=== PATIENT | male | born 1945 | race Caucasian/White ===

== ENCOUNTER → 2018-09-22 13:06 | Outpatient (CLI) | payer MEDICARE, SELFPAY ==
--- NOTE | 2018-09-22 13:11 | DI.RAD.S_ITS ---
PROCEDURE: XR SHOULDER RT MIN 2V INDICATIONS: BILATERAL SHOULDER PAIN TECHNIQUE: 3 views of the shoulder were acquired. COMPARISON: [facility], , SHOULDER MINIMUM 2VIEW RIGHT, 04/17/2009, 11:50. FINDINGS: Bones: No fractures or dislocations. No suspicious bony lesions. Medical acromioclavicular and glenohumeral joint degeneration. Visualized ribs appear intact. Soft tissues: No suspicious soft tissue calcifications. IMPRESSION: Mild degenerative joint disease. Dictated by: Marissa Nelson M.D. on 09/22/2018 at 17:10 Approved by: Marissa Nelson M.D. on 09/22/2018 at 17:11
--- NOTE | 2018-09-22 13:11 | DI.RAD.S_ITS ---
PROCEDURE: XR SHOULDER LT MIN 2V INDICATIONS: BILATERAL SHOULDER PAIN TECHNIQUE: 3 views of the shoulder were acquired. COMPARISON: None. FINDINGS: Bones: No fractures or dislocations. No suspicious bony lesions. Mild acromioclavicular and glenohumeral joint degeneration. Visualized ribs appear intact. Soft tissues: No suspicious soft tissue calcifications. IMPRESSION: No fracture or dislocation. Mild degenerative joint disease. Dictated by: Marissa Nelson M.D. on 09/22/2018 at 17:03 Approved by: Marissa Nelson M.D. on 09/22/2018 at 17:10
== END ==
PROVIDERS: Family Provider Family Medicine; PCP Family Medicine; Visit Provider Family Medicine
DX: M25.511 Pain in right shoulder (principal); M25.512 Pain in left shoulder; M19.012 Primary osteoarthritis, left shoulder; M19.011 Primary osteoarthritis, right shoulder
CPT/HCPCS: 73030

== ENCOUNTER 2019-05-03 10:11 | Day surgery (SDC) | payer MEDICARE, SELFPAY ==
--- NOTE | 2019-05-02 19:06 | PM.PREOP ---
Pre-operative Note Interval Note History & Physical reviewed/Exam performed by Physician: Yes Changes to H&P: No
--- NOTE | 2019-05-02 19:07 | PM.OP.1 ---
Operative Date/Time/Diagnoses Date of procedure: 05/03/19 Time of procedure: 11:45 Procedure & Clinicians Procedure: . Preoperative diagnoses: 1. 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 2. 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 3. Status post LASIK 4. Nasal pterygium. 5. Strabismus. Postoperative diagnoses: 1. Complex cataract removed by phacoemulsification with placement of posterior chamber intraocular lens. Procedure: Phacoemulsification with posterior chamber intraocular lens implant . Surgeon: Teresa Cordoba MD Complications: None Specimen: None Implant: ZCBOO+18.5 Blood loss: None Anesthesia: Retrobulbar with monitored standby Description of procedure: Patient presents with a complaint of decreased vision due to cataract which is affecting activities of daily living and driving. The patient wants surgery to improve vision. The iris maybe floppy due to use of prostate like medication. He has also had LASIK which also increases the risk intraoperative complications. 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 To improve surgical safety a Malyugin ring iris pupillary device may be needed. The patient was taken to the operating room and given IV sedation. A retrobulbar block insert consisting of 6 cc of 2% xylocaine without epinephrine mixed half and half with 0.5% Marcaine with 1 cc of hyaluronidase added is placed between the medial and lateral 1/3 of the inferior orbital rim. Lid akinesia is obtain with 1% xylocaine with epinephrine infiltrated along the lid margin. The eye is manually massaged for 30 sec, prepped using Betadine solution, and draped in the usual sterile fashion. His pupil dilated very large and a Maluygin ring was not used. A temporal approach was made, a 1 mm side-port incision was made 90? from the proposed clear corneal incision position. Phenylephrine 1.5% mixed with 1% xylocaine 0.2 cc was placed into the anterior chamber. Viscoat followed by Vidhi was then placed. A 2.6 mm clear incision with a 2.6 mm blade was placed. I noted a probable posterior polar cataract centrally. A 360 degree capsulorrhexis style capsulotomy was then performed with a cystitome needle on a Healon . Hydrodelineation and hydrodissection were performed. The phacoemulsification unit is introduced, and sculpting used to groove the central lens. It is then removed in chopping mode. Epi nucleus is removed with epinuclear mode and irrigation aspiration was used to remove the peripheral cortex with care due to the probable posterior polar plaque. The posterior capsule was not polished centrally. The intraocular lens is selected, inspected, power confirmed, and placed in the posterior chamber. there was no floppy knows to the iris.The wound was stromally hydrated and tested for leaks, there was none and it was left sutureless. Moxifloxacin 0.1 cc was placed into the anterior chamber. Kenalog 0.2 cc was placed in the superior subconjunctival space. A drop of antibiotic and was placed and the eye was patched and shielded. The patient was stable and returned to the recovery room in excellent condition. Dictated by: Teresa Cordoba MD Copy to: [facility]
[2019-05-03] MEDS: PROPARACAINE 0.5% OPHTH SOL 2 DROPS EYE-OP (11:14)
[2019-05-03] MEDS: CATARACT EYE COMPOUND (10 DROPS/SYRINGE) 3 DROPS EYE-OP (11:16)
[2019-05-03 11:21] VITALS: BP 142/72; PULSE 48; RESP 14; TEMP 36.7; O2SAT 99; BMI 24.7
--- NOTE | 2019-05-03 12:39 | SUR.OPER ---
Supine on eye stretcher, head on extension cradle secured with tape. Arms tucked at sides with blanket. Pillow under knees.
[2019-05-03] MEDS: PHENYLEPHRINE/LIDOCAINE VIAL (OR) 0.2 ML EYE-OP (12:42)
[2019-05-03] MEDS: TRIAMCINOLONE 50 MG/5 ML VIAL INJ (12:43)
[2019-05-03] MEDS: LIDOCAINE 2% 4 ML, BUPIVACAINE 0.5% (PF) 4 ML, HYALURONIDASE 150 UNIT INJ (12:43)
[2019-05-03] MEDS: CHONDROIDTIN/SOD HYALURONATE 1.05 ML SYRINGE INTRAOCULA (12:45)
[2019-05-03] MEDS: MOXIFLOXACIN INJ 5 MG/ML VIAL EYE-OP (12:45)
[2019-05-03] MEDS: BALANCED SALT IRRIG SOLN NO.2 500 ML, EPINEPHrine 1 MG IRR (12:46)
[2019-05-03] MEDS: HYALURONATE SODIUM 10 MG/ML SYRINGE INJ (12:46)
[2019-05-03] MEDS: ERYTHROMYCIN OPHTH 1 GM OINT 1 APPLIC EYE-LEFT (12:47)
[2019-05-03 13:02] VITALS: BP 130/79; PULSE 48; RESP 14; TEMP 36.5; O2SAT 98
== END 2019-05-03 13:12 | disposition home or self-care (01) ==
LOC: OR 10:14
PROVIDERS: Family Provider Family Medicine; PCP Family Medicine; Visit Provider Ophthalmology
PROC: (CPT 66982; principal; 2019-05-03 11:45)
DX: H25.812 Combined forms of age-related cataract, left eye (principal); H50.9 Unspecified strabismus; I10 Essential (primary) hypertension
CPT/HCPCS: 66982; J0171; J2704; J3301; J3470

== ENCOUNTER 2019-05-10 10:21 | Day surgery (SDC) | payer MEDICARE, SELFPAY ==
--- NOTE | 2019-05-09 19:37 | PM.PREOP ---
Pre-operative Note Interval Note History & Physical reviewed/Exam performed by Physician: Yes Changes to H&P: No
[2019-05-10] MEDS: CATARACT EYE COMPOUND (10 DROPS/SYRINGE) 3 DROPS EYE-OP (10:40)
[2019-05-10] MEDS: PROPARACAINE 0.5% OPHTH SOL 2 DROPS EYE-OP (10:40)
[2019-05-10 10:43] VITALS: BP 137/74; PULSE 55; RESP 14; TEMP 36.1; O2SAT 96; BMI 24.3
[2019-05-10] MEDS: LIDOCAINE 2% 4 ML, BUPIVACAINE 0.5% (PF) 4 ML, HYALURONIDASE 150 UNIT INJ (13:00)
[2019-05-10] MEDS: TRIAMCINOLONE 50 MG/5 ML VIAL INJ (13:00)
[2019-05-10] MEDS: BALANCED SALT IRRIG SOLN NO.2 500 ML, EPINEPHrine 1 MG IRR (13:01)
[2019-05-10] MEDS: PHENYLEPHRINE/LIDOCAINE VIAL (OR) 0.2 ML EYE-OP (13:02)
[2019-05-10] MEDS: ERYTHROMYCIN OPHTH 1 GM OINT 1 APPLIC EYE-RIGHT (13:02)
[2019-05-10] MEDS: MOXIFLOXACIN INJ 5 MG/ML VIAL EYE-OP (13:02)
[2019-05-10] MEDS: HYALURONATE SODIUM 10 MG/ML SYRINGE INJ (13:03)
[2019-05-10] MEDS: CHONDROIDTIN/SOD HYALURONATE 1.05 ML SYRINGE INTRAOCULA (13:03)
[2019-05-10 13:25] VITALS: BP 125/73; PULSE 57; RESP 14; TEMP 36.8; O2SAT 96
--- NOTE | 2019-05-10 13:39 | SUR.PHASEII ---
Sitting up on the stretcher, enjoying coffee, at bedside. Informed pt to let me know when he wants to go home and hep lock will be dc'd. Surg site CDI, pleasant, denies pain.
--- NOTE | 2019-05-10 13:50 | SUR.PHASEII ---
[id number] Stable and pleasant, expresses appreciation for care. Surg site CDI
--- NOTE | 2019-05-10 14:15 | P.OP_ITS ---
Operative Date/Time/Diagnoses Date of procedure: 05/10/19 Time of procedure: 12:45 Procedure & Clinicians Procedure: Preoperative diagnoses: 1. Right nuclear sclerotic and cortical cataract. 2. Status post LASIK. 3. 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 4. Strabismus requiring prisms. Postoperative diagnoses: 1. Cataract removed by phacoemulsification with placement of posterior chamber intraocular lens. Procedure: Phacoemulsification with posterior chamber intraocular lens implant Surgeon: Teresa Cordoba MD Complications: None Specimen: None Implant: ZCBOO+18.5 Blood loss: None Anesthesia: Retrobulbar with monitored standby Description of procedure: Patient presents with a complaint of decreased vision due to cataract which is affecting activities of daily living. He is a retired Sample [employer] having trouble with both distance and near vision. He is having difficulty with double vision as he requires prisms in his glasses and needs quicker rehabilitation. The patient wants surgery to improve vision. he has had previous refractive surgery as well as takes Flomax which might cause floppy iris syndrome and may have a posterior polar cataract. He is a good dilator. The patient was taken to the operating room and given IV sedation. A retrobulbar block consisting of 6 cc of 2% xylocaine without epinephrine mixed half and half with 0.5% Marcaine with 1 cc of hyaluronidase added is placed between the medial and lateral 1/3 of the inferior orbital rim. The eye is manually massaged for 30 sec, prepped using Betadine solution, and draped in the usual sterile fashion. Temporal approach was made, a 1 mm side-port incision was made 90? from the proposed clear corneal incision position. Phenylephrine 1.5% mixed with 1% xylocaine 0.2 cc was placed into the anterior chamber. Viscoat followed by Healo n was then placed. A 2.6 mm clear incision with a 2.6 mm blade was placed. A 360 degree capsulorrhexis style capsulotomy was then performed with a cystitome needle on a Remind. Hydrodelineation and hydrodissection were performed. The phacoemulsification unit is introduced, and sculpting notice used to groove the central lens. It is then removed in chopping mode. Epi nucleus is removed with epinuclear mode and irrigation aspiration was used to remove the peripheral cortex. The posterior capsule is polished. The intraocular lens is selected, inspected, power confirmed, and placed in the posterior chamber. The wound was stromally hydrated and tested for leaks, there was none and it was left sutureless. Vigamox 0.1 cc was placed into the anterior chamber. Kenalog 0.2 cc was placed in the superior subconjunctival space. A drop of antibiotic and was placed and the eye was patched and shielded. The patient was stable and returned to the recovery room in excellent condition. Dictated by: Teresa Cordoba MD Copy to: [facility]
== END 2019-05-10 13:48 | disposition home or self-care (01) ==
LOC: OR 10:22
PROVIDERS: Family Provider Family Medicine; PCP Family Medicine; Visit Provider Ophthalmology
PROC: (CPT 66984; principal; 2019-05-10 11:45)
DX: H25.811 Combined forms of age-related cataract, right eye (principal); H50.9 Unspecified strabismus; I10 Essential (primary) hypertension
CPT/HCPCS: 66984; J0171; J2250; J2704; J3010; J3301; J3470

== ENCOUNTER → 2020-12-31 11:35 | Outpatient (CLI) | payer MEDICARE, SELFPAY | PROVIDERS: Family Provider Family Medicine; PCP Family Medicine; Referring Provider Family Medicine; Visit Provider Family Medicine | DX: M85.852 Other specified disorders of bone density and structure, left thigh (principal); M41.20 Other idiopathic scoliosis, site unspecified; Z85.46 Personal history of malignant neoplasm of prostate; Z87.891 Personal history of nicotine dependence | CPT/HCPCS: 77080 ==

== ENCOUNTER → 2023-05-03 12:05 | Outpatient (CLI) | payer MEDICARE, SELFPAY ==
--- NOTE | 2023-05-03 | DI.RAD.S_ITS ---
Bone Density Report Name: TAWANNA JAFFE Age: 77 Sex: Male Ethnicity: White Date of : 1945 Indication: screening for osteoporosis; Referring Provider: GURJIT BOATENG Study: Bone densitometry was performed. Exam Date: May 03, 2023 Accession number: [id number] Bone Density: Region BMD T-score Z-score Classification AP Spine(L1-L4) 1.142 0.9 1.5 Normal Femoral Neck (Left) 0.775 -0.7 0.2 Normal Total Hip (Left) 0.988 0.4 0.6 Normal Femoral Neck (Right) 0.747 -0.9 0.0 Normal Total Hip (Right) 0.875 -0.5 -0.2 Normal Total Hip Mean 0.932 -0.1 0.2 Normal World Health Organization criteria for BMD impression classify patients as: Normal (T-score at or above -1.0), Osteopenia (T-score between -1.0 and -2.5), or Osteoporosis (T-score at or below -2.5). 10-year Fracture Risk: FRAX not reported because: All T-scores for Spine Total, Hip Total, Femoral Neck at or above -1.0 Previous Exams: -- Region Exam Age BMD T-score BMD Change BMD Change Date g/cm2 vs Baseline vs Previous -- AP Spine (L1-L4) 05/03/2023 77 1.142 0.9 -0.100 (-8.0%)# -0.100 (-8.0%)# 12/31/2020 75 1.242 1.8 Total Hip(Left) 05/03/2023 77 0.988 0.4 0.016 (1.6%)# 0.016 (1.6%)# 12/31/2020 75 0.972 0.2 Total Hip(Right) 05/03/2023 77 0.875 -0.5 -0.032 (-3.5%)# -0.032 (-3.5%)# 12/31/2020 75 0.907 -0.3 -- *Denotes significance at 95% confidence level, LSC for AP Spine = 0.022 g/cm2, LSC for Total Hip = 0.027 g/cm2 # Denotes dissimilar scan types or analysis methods Impression: The patient has normal bone mass. No significant bone loss was observed. Discussion: BONE DENSITY IS ABOVE THE MINIMUM DESIRABLE LEVEL AT ALL SKELETAL SITES TESTED. This patient's bone mineral density is above the minimum desirable level (T-score -1.0 or better) at all sites measured. The patient should follow a healthful lifestyle (good nutrition with adequate calcium and vitamin D, and appropriate weight-bearing exercise). Follow-Up: Consider repeating this study in 5 years or sooner if there is some new clinical indication. Reported by: LOTTIE DUMONT M.D. on 05/03/2023 12:50:00 PM.
--- NOTE | 2023-05-03 12:08 | DI.RAD.S_ITS ---
PROCEDURE: XR THORACIC SPINE 3V INDICATIONS: scoliosis, back pain TECHNIQUE: 3 views of the thoracic spine were acquired. COMPARISON: [facility], CR, XR LUMBAR SPINE 2-3V, 05/03/2023, 12:19. FINDINGS: Bones: There is 43 degree dextroscoliosis in thoracolumbar spine with the apex at T11. No fractures or dislocations. No suspicious bony lesions. Mild degenerative disease scattered in thoracic spine. 12 pairs of ribs are noted, and appear intact where visualized. Soft tissues: No paravertebral stripe thickening. IMPRESSION: 1. 43 degree dextroscoliosis. 2. Mild degenerative disc disease. Dictated by: Marissa Nelson M.D. on 05/03/2023 at 17:10 Approved by: Marissa Nelson M.D. on 05/03/2023 at 17:13
--- NOTE | 2023-05-03 12:08 | DI.RAD.S_ITS ---
PROCEDURE: XR LUMBAR SPINE 2-3V INDICATIONS: scoliosis, back pain TECHNIQUE: 3 views of the lumbar spine were acquired. COMPARISON: [facility], CR, XR THORACIC SPINE 3V, 05/03/2023, 12:19. FINDINGS: Bones: 5 hrs-kwu-kqzzwho vertebrae are present. S shaped scoliosis in thoracolumbar spine with the primary dextrocurvature in thoracic spine and a 18.2 degree secondary levoscoliosis in lumbar spine with the apex at L4. normal bony alignment. No vertebral body compression fractures. No suspicious bony lesions. Moderate degenerative disease at L2-L3 and L3-L4. Moderate facet arthropathy at L4-L5 and L5-S1. Soft tissues: Overlying bowel gas pattern is normal. No suspicious soft tissue calcifications. IMPRESSION: 1. Scoliosis. 2. Moderate degenerative disc and facet disease. Dictated by: Marissa Nelson M.D. on 05/03/2023 at 16:56 Approved by: Marissa Nelson M.D. on 05/03/2023 at 17:01
== END ==
PROVIDERS: Family Provider Family Medicine; PCP Family Medicine; Referring Provider Family Medicine; Visit Provider Family Medicine
DX: M47.817 Spondylosis without myelopathy or radiculopathy, lumbosacral region (principal); M47.816 Spondylosis without myelopathy or radiculopathy, lumbar region; M51.36 Other intervertebral disc degeneration, lumbar region; M54.50 Low back pain, unspecified; M25.551 Pain in right hip; M81.8 Other osteoporosis without current pathological fracture; M41.25 Other idiopathic scoliosis, thoracolumbar region
CPT/HCPCS: 72072; 72100; 77080

== ENCOUNTER → 2023-05-08 15:09 | Outpatient (CLI) | payer MEDICARE, SELFPAY ==
--- NOTE | 2023-05-08 | DI.MRI.S_ITS ---
PROCEDURE: MR THORACIC SPINE WO CON INDICATIONS: DUE TO PAIN TECHNIQUE: Noncontrast sagittal T1 spine echo and T2 fast spin echo, sagittal STIR, and T2 fast spin echo through the thoracic spine. COMPARISON: [facility], CR, XR THORACIC SPINE 3V, 05/03/2023, 12:19. FINDINGS: Image quality: Excellent. Alignment and Curvature: There is dextroscoliosis of the mid thoracic spine. Bone Marrow: Marrow is of normal overall signal. No acute vertebral body compression fractures. Spinal Cord: Visualized spinal cord is normal in size and signal. Paraspinous Soft Tissues: No paravertebral masses. Miscellaneous: On axial images, central canal and foramina appear widely patent at all scanned levels. Minimal multilevel facet arthropathy. IMPRESSION: Thoracic spine without acute abnormalities. No evidence for significant spinal canal or neural foraminal stenosis. Mild multilevel thoracic spondylosis. Redemonstration of dextroscoliosis of the thoracic spine. Dictated by: Evaristo Tee M.D. on 05/10/2023 at 8:53 Approved by: Evaristo Tee M.D. on 05/10/2023 at 8:56
--- NOTE | 2023-05-08 | DI.MRI.S_ITS ---
PROCEDURE: MR LUMBAR SPINE WO CON INDICATIONS: DUE TO PAIN TECHNIQUE: Noncontrast sagittal T1 spin echo and T2 fast echo, sagittal STIR, and T2 fast spin echo through the lumbar spine. In cases with scoliosis, additional coronal T2 fast spin echo may be performed. COMPARISON: None. FINDINGS: Image quality: Excellent. Alignment and Curvature: There is 19? left convex scoliosis centered at L3. Bone Marrow: Marrow is of normal overall signal. No acute vertebral body compression fractures. Spinal Cord: Conus medullaris terminates at the L1 level. Visualized cord demonstrates normal signal and size. Paraspinous Soft Tissues: No paravertebral masses. T12-L1: Normal appearance. L1-L2: Mild bilateral foraminal narrowing. No canal stenosis. L2-L3: Mild facet ligamentum flavum hypertrophy. Mild left foraminal stenosis. No right neural foraminal narrowing. L3-L4: Moderate facet ligamentum flavum hypertrophy. No canal stenosis. Moderate right foraminal narrowing. No left neural foraminal stenosis. L4-L5: Mild disc desiccation. Broad-based disc bulge. Severe facet ligamentum flavum hypertrophy. Mild canal stenosis. Mild bilateral foraminal stenosis. L5-S1: Mild disc desiccation and height loss. Moderate facet ligamentum flavum hypertrophy. No canal stenosis. No foraminal stenosis. There is a small posterior focal high-intensity zone. IMPRESSION: 1. 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 2. No significant canal stenosis or foraminal narrowing of the lumbar spine. 3. Levoscoliosis. Dictated by: Jeanne Santo M.D. on 05/10/2023 at 9:42 Approved by: Jeanne Santo M.D. on 05/10/2023 at 9:55
== END ==
PROVIDERS: Family Provider Family Medicine; PCP Family Medicine; Referring Provider Family Medicine; Visit Provider Family Medicine
DX: M41.25 Other idiopathic scoliosis, thoracolumbar region (principal); M51.9 Unspecified thoracic, thoracolumbar and lumbosacral intervertebral disc disorder; M47.814 Spondylosis without myelopathy or radiculopathy, thoracic region
CPT/HCPCS: 72146; 72148

== ENCOUNTER → 2024-04-24 07:38 | Outpatient (CLI) | payer MEDICARE, SELFPAY ==
--- NOTE | 2024-04-24 07:41 | DI.RAD.S_ITS ---
PROCEDURE: XR T AND L SPINE 4 TO 5 VIEWS INDICATIONS: scoliosis TECHNIQUE: Frontal and lateral standing views of the spine acquired. COMPARISON: [facility], CR, XR THORACIC SPINE 3V, 05/03/2023, 12:19. FINDINGS: Major curve: Thoracic convex to the right . [place] vertebra or disc level: T4 . End vertebrae: T12 . Arce angle: 41 ?. Arce angles greater than 10 degrees qualify as scoliosis; those less than 10 degrees are deemed spinal asymmetry and generally do not progress. On follow-up, Arce angle changes of 5 degrees or more qualify as significant. Major curve: Lumbar convex to the left. [place] vertebra or disc level: L2 . End vertebrae: L5. Arce angle: 27 ?. Arce angles greater than 10 degrees qualify as scoliosis; those less than 10 degrees are deemed spinal asymmetry and generally do not progress. On follow-up, Arce angle changes of 5 degrees or more qualify as significant. Other measurements: Coronal balance: Neutral. Abnormal if greater than +/- 2 cm on the frontal view. Sagittal balance: Positive 1.3 cm. Abnormal if greater than +/- 2 cm on the lateral view. Bone morphology: No developmental anomalies of the ribs or spine. Wall pairs of ribs are noted. 5 nonrib-bearing lumbar vertebrae are present. No suspicious bony lesions. IMPRESSION: Thoracic dextroscoliosis. Lumbar levoscoliosis Dictated by: Harvinder Encarnacion M.D. on 04/24/2024 at 23:16 Approved by: Harvinder Encarnacion M.D. on 04/24/2024 at 23:22
== END ==
LOC: RAD 07:40
PROVIDERS: Family Provider Family Medicine; PCP Family Medicine; Referring Provider Physical Medicine & Rehabilitation; Visit Provider Physical Medicine & Rehabilitation
DX: M41.9 Scoliosis, unspecified (principal); M47.816 Spondylosis without myelopathy or radiculopathy, lumbar region
CPT/HCPCS: 72083

== ENCOUNTER 2024-06-13 13:29 | Outpatient (CLI) | payer MEDICARE, SELFPAY ==
[2024-06-13] VITALS (8 sets, daily range): BP systolic 119–156; BP diastolic 66–73; PULSE 59–65; RESP 12–21; TEMP 36.7; O2SAT 97–100
--- NOTE | 2024-06-13 13:31 | DI.RAD.S_ITS ---
PROCEDURE: PAIN L/S TRANSFORAMINAL INJECT INDICATIONS: Right L4-5 transforaminal ISH COMPARISON: None. FINDINGS/IMPRESSION: Fluoroscopic spot filming was performed to verify placement of spinal needles at the L4-5 level(s), as labeled on the films. Appropriate location(s) of the needle tip(s) was confirmed by injection of iodinated contrast. Dictated by: Jes Rodriguez M.D. on 06/13/2024 at 16:06 Approved by: Jes Rodriguez M.D. on 06/13/2024 at 16:06
[2024-06-13] MEDS: MIDAZOLAM 2 MG/2 ML VIAL IV (14:37)
[2024-06-13] MEDS: BUPIVACAINE 0.25% (PF) VIAL 2 ML INJ (14:43)
[2024-06-13] MEDS: DEXAMETHASONE 10 MG/ML VIAL INJ (14:43)
[2024-06-13] MEDS: iopamidoL 15 ML VIAL 3 ML INJ (14:44)
[2024-06-13] MEDS: BETAMETHASONE 30 MG/5 ML MDV 12 MG INJ (14:44)
--- NOTE | 2024-06-13 14:56 | P.PCN_ITS ---
Date/Time/Diagnoses Date of procedure: 06/13/24 Time of procedure: 14:56 Pre-procedure diagnosis: 1. FORAMINAL STENOSIS WITH LE SYMPTOMS Post-procedure diagnosis: same Procedure Notes Procedure: 1. FLUOROSCOPICALLY GUIDED CONTRAST CONTROLLED TRANSFORAMINAL EPIDURAL STEROID INJECTION - RIGHT L4/5 TFESI Indications: Chente is referred by Dr. Mars for treatment of Foraminal Stenosis with Right LE Symptoms Physician: Cong Dimas Total Fluoroscopy time (seconds): 10 Total sedation minutes: 11 Complications: none Procedure in detail & Post-procedure care: FINDINGS Foraminal Nerve Root Compression secondary to disc disease and facet hypertrophy DESCRIPTION OF PROCEDURE Following review of allergy and review of potential side effects and complications, including, but not necessarily limited to, infection, allergic reaction, local tissue breakdown, stroke, temporary or permanent nerve injury, paralysis, and possible , the patient indicated that the patient understood and agreed to proceed. An informed consent document was signed by the patient, witnessed by a nurse, and placed in the patient's chart. Additionally, other treatment options including medications, modalities, and physical therapy were reviewed with the patient. After review of previous anaesthesic history and IV conscious sedation the patient was deemed safe to proceed with today?s procedure with IV conscious sedation as ASA class II designation. Safety time-out was performed to confirm patient ID, procedure to be performed and site of procedure. IV sedation was accomplished with a combination of 2mg of Versed was administered by the RN after DO order, titrated to patient comfort during the course of the procedure while the patient remained responsive to all verbal commands In the prone position following sterile prep and drape of the lumbar region, the right L4/5 posterior neuroforamen was identified fluoroscopically. The skin was anesthetized via a 25-gauge 1.5-inch needle with 1% lidocaine solution. At this point, a 25-gauge 3.5-inch spinal needle was atraumatically introduced and advanced under fluoroscopic guidance through the posterior right L4/5 neuroforamen to approximately the anterior aspect of the canal. Depth was confirmed on lateral view. Following negative aspiration, injection of approximately 1.5cc of Isovue 200 under live fluoroscopy in the AP view c onfirmed excellent flow along the nerve root, into the epidural space without vascular or intrathecal uptake observed Radiological data, including multiple fluoroscopic views of the lumbosacral spi ne, reveal a spinal needle at the right L4/5 posterior neuroforamen. Subsequent views show flow of contrast material flowing superiorly and inferiorly along the nerve root confirming epidural flow. Subsequently, a test dose of 1.5 cc of 1% lidocaine solution was administered and patient was observed for two minutes for signs or symptoms of complications, including abdominal pain, shortness of breath, bilateral upper or lower extremity weakness, nausea and vomiting, prior to steroid injection. At this point, a total of 3cc or 10mg of dexamethasone and 12mg of betamethasone was injected without incident. The procedure tolerated the procedure well without signs or symptoms of complications prior to transfer to the recovery area continued monitoring without incident. The patient was then transferred to the recovery area where they were observed for an appropriate time after the injection. The patient reported a VAS score of 7 prior to the procedure and a post- procedure VAS of 0. POST OP INSTRUCTIONS The patient was provided a Pain Log to continue to record their response to the target-specific procedure prior to follow-up visit with their referring physician. Additionally, specific post-injection care instructions and a contact number to our office were provided if concerns arise regarding possible complications associated with the procedure are suspected.
== END 2024-06-13 15:17 | disposition home or self-care (01) ==
PROVIDERS: Family Provider Family Medicine; PCP Family Medicine; Referring Provider Physical Medicine & Rehabilitation; Visit Provider Physical Medicine & Rehabilitation
DX: M48.061 Spinal stenosis, lumbar region without neurogenic claudication (principal); M51.16 Intervertebral disc disorders with radiculopathy, lumbar region; M47.26 Other spondylosis with radiculopathy, lumbar region
CPT/HCPCS: 64483; 99152; J0702; J1100; J2250; J3490

== ENCOUNTER 2024-09-28 08:06 | Outpatient (CLI) | payer MEDICARE, SELFPAY ==
[2024-09-28] VITALS (8 sets, daily range): BP systolic 98–134; BP diastolic 53–67; PULSE 54–68; RESP 14–18; TEMP 36.4; O2SAT 98–100
[2024-09-28] MEDS: MIDAZOLAM 2 MG/2 ML VIAL 1 MG IV ×2 (09:04→09:09)
[2024-09-28] MEDS: BUPIVACAINE 0.5% (PF) 10 ML VIAL 2 ML INJ (09:09)
[2024-09-28] MEDS: iopamidoL 15 ML VIAL 3 ML INJ (09:10)
--- NOTE | 2024-09-28 09:19 | PM.PROC.IR.1 ---
Date/Time/Diagnoses Date of procedure: 09/28/24 Time of procedure: 09:19 Pre-procedure diagnosis: 1. FACET ARTHROPATHY Post-procedure diagnosis: same Procedure Notes Procedure: 1. Right L4, L5 and S1 MB BLOCKS LA Indications: Chente is referred by Dr. Mars for treatment of Right Axial LBP. Physician: Cong Dimas Total Fluoroscopy time (seconds): 5 Total sedation minutes: 10 Complications: none Procedure in detail & Post-procedure care: DESCRIPTION OF PROCEDURE Fluoroscopically guided, contrast-controlled right L4, L5 and S1 medial branch blocks with 0.5cc of 0.5% Marcaine. Following review of allergy and review of potential side effects and complications, including, but not necessarily limited to, infection, allergic reaction, local tissue breakdown, nerve injury, paralysis, stroke and possible , the patient indicated that the patient understood and agreed to proceed. An informed consent document was signed by the patient, witnessed by a nurse, and placed in the patient's chart. After review of previous anaesthesic history and IV conscious sedation the patient was deemed safe to proceed with today?s procedure with IV conscious sedation as ASA class II designation. Safety time-out was performed to confirm patient ID, procedure to be performed and site of procedure. IV sedation was accomplished with a combination of 2mg of Versed was administered by the RN after DO order, titrated to patient comfort during the course of the procedure while the patient remained responsive to all verbal commands In the prone position, following sterile prep and drape of the lumbar region, the right L4, L5 and S1 anatomical location of the medial branch of the dorsal ramus was identified fluoroscopically. Subsequently an anesthetic skin wheal using 1% lidocaine solution was initiated at each of the anatomical spots. Subsequently then a 22-gauge 3.5-inch spinal needle was atraumatically introduced and advanced under fluoroscopic guidance at each of the corresponding sites at the right L4, L5 and S1 MB. After negative aspiration, 0.2 cc of Isovue 200 was injected, confirming placement without vascular or intrathecal uptake. Subsequently then 0.5 cc of 0.5% Marcaine solution was injected at each of the corresponding sites at the right L4, L5 and S1 medial branch locations. The patient tolerated the procedure well without signs or symptoms of complications. The procedure tolerated the procedure well without signs or symptoms of complications prior to transfer to the recovery area continued monitoring without incident. Post-procedure, the patient was monitored initiating provocative activities to measure the amount of relief from block of the facetogenic pain. The patient reported a VAS of 7 prior to the procedure and a post-procedure VAS of 1. It has been a pleasure to assist in the diagnostic and therapeutic care of your patient. POST OP INSTRUCTIONS The patient was provided with a Pain Log to complete over the next several hours and subsequent days prior to the patient's follow up with the ordering physician. If the patient has cotton classer aide relief to the solution applied, then they may be a candidate for medial branch rhizotomy. The patient is aware, was provided, once again, with a Pain Log and will follow up with the referring physician for review and clinical correlation.
== END 2024-09-28 09:40 | disposition home or self-care (01) ==
PROVIDERS: Family Provider Family Medicine; PCP Family Medicine; Referring Provider Physical Medicine & Rehabilitation; Visit Provider Physical Medicine & Rehabilitation
DX: M47.816 Spondylosis without myelopathy or radiculopathy, lumbar region (principal); M47.817 Spondylosis without myelopathy or radiculopathy, lumbosacral region
CPT/HCPCS: 64493; 64494; 99152; J2250

== ENCOUNTER → 2024-11-22 06:53 | Outpatient (CLI) | payer MEDICARE, SELFPAY ==
--- NOTE | 2024-11-22 06:54 | DI.ECHO.S_ITS ---
[facility]---------+ [facility] : : [address] : : [place] : : [id number] : : Phone: [phone] Echocardiogram Report + + :Name: TAWANNA JAFFE Study Date: 11/22/2024 Height: 69 in : :Hospital ReadingLocation: Weight: 165 lb : : Gender: Male BSA: 1.9 m2 : :: 1945 Age: 79 yrs BP: 122/61 mmHg: :Reason For Study: ARRHYTHMIA : :Ordering Physician: TASNEEM, : :GURJIT Performed By: Unruly Pisano : :Referring: GURJIT BOATENG : + + Interpretation Summary 1. The left ventricular contractility is normal. Estimate ejection fraction is greater than 55% with no segmental wall motion abnormalities. No LVH. No diastolic dysfunction. 2 the right ventricular contractility is normal. 3. Mild right ventricular enlargement. All other cardiac chambers are of normal size. 4. Trace to mild tricuspid regurgitation with estimated pulmonary systolic artery pressures of 30 mmHg. 5. No obvious intracardiac shunts. 6. No obvious intracardiac masses nor thrombi. 7. No hemodynamically significant pericardial effusion. 8. Low right-sided filling pressures. 9. Mildly dilated ascending thoracic aorta as well as aortic root without obvious dissection. Conclusion: Normal biventricular function with no significant valvular abnormalities. Procedure: A two-dimensional transthoracic echocardiogram with color flow and Doppler was performed. The study quality was technically good. There is no prior echocardiogram noted for this patient. The patient had occasional PACs during the exam. Left Ventricle: The left ventricle is normal in size. There is normal left ventricular wall thickness. There is no ventricular septal defect visualized. The ejection fraction is estimated to be 60-65%. There are no focal wall motion abnormalities. Diastolic parameters suggest probable normal left ventricular diastolic function and normal filling pressures. Right Ventricle: The right ventricle is normal in size and function. Atria: The left atrial size is normal. The right atrium is mildly dilated. There is no Doppler evidence for an interatrial shunt. Mitral Valve: The mitral valve leaflets appear mildly thickened, but open well. The mitral valve chordae are thickened and/or calcified. There is no mitral regurgitation noted. Aortic Valve: The aortic valve is trileaflet. The aortic valve opens well. No aortic regurgitation is present. Tricuspid Valve: The tricuspid valve leaflets are thin and pliable. There is mild tricuspid regurgitation. The right ventricular systolic pressure is estimated to be at least 30 mmHg based on an estimated right atrial pressure of 3 mm Hg. Pulmonic Valve: The pulmonic valve is not well seen, but is grossly normal. There is no pulmonic valvular regurgitation. Great Vessels: The aortic root is mildly dilated. The ascending aorta is mildly enlarged. The pulmonary artery is normal size. The IVC is of normal diameter and collapses greater than 50% with a sniff. This suggests a low right atrial pressure of 3 mm Hg. Pericardium/ Pleura There is no pericardial effusion. There is no pleural effusion. MMode/2D Measurements & Calculations LVIDd: 5.7 cm LVOT diam: 2.1 cm LVIDs: 4.1 cm Ao root diam: 3.9 cm FS: 28.9 % asc Aorta Diam: 4.0 cm EPSS: 0.35 cm IVSd: 0.84 cm LVPWd: 0.80 cm LV beaulieu. diameter/BSA (cm/m^2): 3.0 LV sys. diameter/BSA (cm/m^2): 2.1 LA A2 area: 16.7 cm2 RA long axis: 5.7 cm LA A4 area: 21.7 cm2 RA area: 19.3 cm2 LA length (vol): 5.6 cm RA vol: 55.8 ml LA vol: 55.4 ml RA : 29.3 ml/m2 LA vol index: 29.1 ml/m2 IVC diam: 1.4 cm TAPSE: 3.5 cm Doppler Measurements & Calculations Ao V2 max: 141.9 cm/sec LVOT Max Trung: 131.5 cm/sec Ao V2 mean: 96.5 cm/sec LV V1 max P.9 mmHg Ao max P.1 mmHg LV V1 VTI: 29.8 cm Ao mean P.2 mmHg VIANCA(I,D): 2.9 cm2 Ao V2 VTI: 34.1 cm VIANCA(V,D): 3.1 cm2 sev ratio: 0.87 VIANCA indexed to BSA (cm^2/m^2): 1.5 MV E max trung: 69.5 cm/sec TR max trung: 262.2 cm/sec MV A max trung: 74.2 cm/sec TR max P.5 mmHg MV E/A: 0.94 PA V2 max: 120.6 cm/sec Med Peak E' Trung: 8.5 cm/sec PA V2 mean: 84.5 cm/sec E/E' med: 8.2 PA mean P.2 mmHg Lat Peak E' Trung: 10.6 cm/sec PA pr(Accel): 55.0 mmHg E/E' lat: 6.5 E/e' average: 7.4 MV dec time: 0.22 sec SV([facility]): 100.1 ml Reading Physician:KENNEDY
== END ==
PROVIDERS: Family Provider Family Medicine; PCP Family Medicine; Referring Provider Family Medicine; Visit Provider Family Medicine
DX: I07.1 Rheumatic tricuspid insufficiency (principal); I77.89 Other specified disorders of arteries and arterioles; I77.810 Thoracic aortic ectasia; I49.9 Cardiac arrhythmia, unspecified; I10 Essential (primary) hypertension
CPT/HCPCS: 93306

== ENCOUNTER 2024-12-12 07:14 | Outpatient (CLI) | payer MEDICARE, SELFPAY ==
[2024-12-12] VITALS (8 sets, daily range): BP systolic 110–140; BP diastolic 54–64; PULSE 53–61; RESP 11–20; TEMP 36.2; O2SAT 97–100
[2024-12-12] MEDS: MIDAZOLAM 2 MG/2 ML VIAL IV (08:33)
[2024-12-12] MEDS: iopamidoL 15 ML VIAL 3 ML INJ (08:40)
[2024-12-12] MEDS: LIDOCAINE 2% INJ SDV 5ML 1 ML INJ (08:42)
--- NOTE | 2024-12-12 08:52 | P.PCN_ITS ---
Date/Time/Diagnoses Date of procedure: 12/12/24 Time of procedure: 08:52 Pre-procedure diagnosis: Lumbar Facet Arthropathy Post-procedure diagnosis: same Procedure Notes Procedure: 1. Right L4, L5 and S1 MB BLOCKS SA Indications: Chente is referred by Dr. Mars for treatment of Right Axial LBP. Physician: Cong Dimas Total Fluoroscopy time (seconds): 4 Total sedation minutes: 11 Complications: none Procedure in detail & Post-procedure care: DESCRIPTION OF PROCEDURE Fluoroscopically guided, contrast-controlled right L4, L5 and S1 medial branch blocks with 0.5cc of 2% Lidocaine. Following review of allergy and review of potential side effects and complications, including, but not necessarily limited to, infection, allergic reaction, local tissue breakdown, nerve injury, paralysis, stroke and possible , the patient indicated that the patient understood and agreed to proceed. An informed consent document was signed by the patient, witnessed by a nurse, and placed in the patient's chart. After review of previous anaesthesic history and IV conscious sedation the patient was deemed safe to proceed with today?s procedure with IV conscious sedation as ASA class II designation. Safety time-out was performed to confirm patient ID, procedure to be performed and site of procedure. IV sedation was accomplished with a combination of 2mg of Versed was administered by the RN after DO order, titrated to patient comfort during the course of the procedure while the patient remained responsive to all verbal commands In the prone position, following sterile prep and drape of the lumbar region, the right L4, L5 and S1 anatomical location of the medial branch of the dorsal ramus was identified fluoroscopically. Subsequently an anesthetic skin wheal using 1% lidocaine solution was initiated at each of the anatomical spots. Subsequently then a 22-gauge 3.5-inch spinal needle was atraumatically introduced and advanced under fluoroscopic guidance at each of the corresponding sites at the right L4, L5 and S1 MB. After negative aspiration, 0.2 cc of Isovue 200 was injected, confirming placement without vascular or intrathecal uptake. Subsequently then 0.5 cc of 2% Lidocaine solution was injected at each of the corresponding sites at the right L4, L5 and S1 medial branch locations. The patient tolerated the procedure well without signs or symptoms of complications. The procedure tolerated the procedure well without signs or symptoms of complications prior to transfer to the recovery area continued monitoring without incident. Post-procedure, the patient was monitored initiating provocative activities to measure the amount of relief from block of the facetogenic pain. The patient reported a VAS of 7 prior to the procedure and a post-procedure VAS of 1. It has been a pleasure to assist in the diagnostic and therapeutic care of your patient. POST OP INSTRUCTIONS The patient was provided with a Pain Log to complete over the next several hours and subsequent days prior to the patient's follow up with the ordering physician. If the patient has custom leather products maker relief to the solution applied, then they may be a candidate for medial branch rhizotomy. The patient is aware, was provided, once again, with a Pain Log and will follow up with the referring physician for review and clinical correlation.
== END 2024-12-12 09:05 | disposition home or self-care (01) ==
PROVIDERS: Family Provider Family Medicine; PCP Family Medicine; Referring Provider Physical Medicine & Rehabilitation; Visit Provider Physical Medicine & Rehabilitation
DX: M47.816 Spondylosis without myelopathy or radiculopathy, lumbar region (principal)
CPT/HCPCS: 64493; 64494; 99152; J2250

== ENCOUNTER 2025-01-02 07:11 | Outpatient (CLI) | payer MEDICARE, SELFPAY ==
[2025-01-02] VITALS (10 sets, daily range): BP systolic 100–116; BP diastolic 51–73; PULSE 48–57; RESP 14–16; TEMP 36.5; O2SAT 98–100
[2025-01-02] MEDS: MIDAZOLAM 2 MG/2 ML VIAL IV (08:20)
[2025-01-02] MEDS: MIDAZOLAM 2 MG/2 ML VIAL 1 MG IV (08:28)
[2025-01-02] MEDS: LIDOCAINE 1% 20 ML 5 ML INJ (08:30)
[2025-01-02] MEDS: BUPIVACAINE 0.5% (PF) 10 ML VIAL 5 ML INJ (08:30)
--- NOTE | 2025-01-02 08:50 | P.PCN_ITS ---
Date/Time/Diagnoses Date of procedure: 01/02/25 Time of procedure: 08:51 Pre-procedure diagnosis: 1. RECALCITRANT FACET ARTHROPATHY Post-procedure diagnosis: same Procedure Notes Procedure: 1. RIGHT L4 AND L5 MEDIAL BRANCH RADIOFREQUENCY NEUROTOMY AND RIGHT S1 DORSAL RAMUS BRANCH RADIOFREQUENCY NEUROTOMY Indications: Chente is referred by Dr. Mars for treatment of facet arthropathy. Physician: Cong Dimas Total Fluoroscopy time (seconds): 10 Total sedation minutes: 22 Complications: none Procedure in detail & Post-procedure care: DESCRIPTION OF PROCEDURE Right L4 and L5 medial branch radiofrequency neurotomy and right S1 dorsal ramus branch radiofrequency neurotomy under fluoroscopy with conscious sedation. The patient is well known to this clinic having undergone previous facet injections with good but temporary relief. The patient has experienced appropriate, concordant relief with previous facet and median branch blocks but the patient's pain has been recalcitrant to further conservative measures. Therefore, based upon the patient's relief and persistent symptoms, the patient is considered an appropriate candidate for facet rhizotomy. All of the patient's questions regarding the risks versus benefits of the procedure, including, but not limited to, bleeding, infection, temporary as well as lasting nerve injury, paralysis, stroke, and , as well treatment alternatives were answered to satisfaction. After review of previous anaesthesic history and IV conscious sedation the patient was deemed safe to proceed with today?s procedure with IV conscious sedation as ASA class II designation. Safety time-out was performed to confirm patient ID, procedure to be performed and site of procedure. IV sedation was accomplished with a combination of 3mg of Versed was administered by the RN after DO order, titrated to patient comfort during the course of the procedure while the patient remained responsive to all verbal commands. After obtaining informed consent, denial of pertinent drug allergies, as well as being made aware of the potential risks of bleeding, infection, spinal cord trauma, paralysis, temporary and permanent nerve damage, seizure, stroke, and possible , the patient was brought to the fluoroscopy suite and positioned prone on the fluoroscopy table. The lumbar region was prepped with Betadine and covered with a fenestrated drape in the usual sterile fashion. Appropriate monitors applied including pulse oximeter, pulse, and blood pressure for regular monitoring throughout the procedure. After local infiltration using 1% lidocaine, under fluoroscopic guidance, a 10- cm RF insulated needle with a 10-mm active tip was positioned parallel to the junction of the right sacral ala and the superior articulating process where the S1 dorsal ramus resides. Needle placement was confirmed with sensory stimulation at 50 Hz, with motor stimulation of .5v on the right which produced local stimulation without radicular component. The stimulation was then increased to 2v with, once again, only local multifidus stimulation without radicular component. This was then followed by two discreet lesions performed at 80 degrees Celsius for 90 seconds each. The needle was then removed and the identical procedure was performed along the length of the right L5 medial branch with motor stimulation at .7v on the right. The identical procedure was once again performed along the length of the right L4 medial branch with motor stimulation of .5v on the right. The patient tolerated the procedure well without signs or symptoms of complications prior to transfer to the recovery area continued monitoring without incident. The patient was then transferred to the recovery area where they were observed for an appropriate period of time after the injection. The patient was then transferred to the recovery area where they were observed for an appropriate period of time after the injection. The patient reported a VAS score of 8 prior to the procedure and a post- procedure VAS of 0. POST OP INSTRUCTIONS The patient was provided a Pain Log to continue to record the patient's response to the target-specific procedure prior to the patient's follow-up visit with the referring physician. Additionally, specific post-injection care instructions and a contact number to our office were provided if concerns arise regarding possible complications associated with the procedure are suspected.
== END 2025-01-02 09:05 | disposition home or self-care (01) ==
LOC: RAD 07:12
PROVIDERS: PCP Family Medicine; Referring Provider Physical Medicine & Rehabilitation; Visit Provider Physical Medicine & Rehabilitation
DX: M47.816 Spondylosis without myelopathy or radiculopathy, lumbar region (principal); M47.817 Spondylosis without myelopathy or radiculopathy, lumbosacral region
CPT/HCPCS: 64635; 64636; 99152; J2250

== ENCOUNTER 2025-06-12 09:40 | Outpatient (CLI) | payer MEDICARE, SELFPAY ==
[2025-06-12] VITALS (9 sets, daily range): BP systolic 113–142; BP diastolic 58–68; PULSE 51–62; RESP 16–20; TEMP 36.5; O2SAT 97–99
[2025-06-12] MEDS: MIDAZOLAM 2 MG/2 ML VIAL IV (11:16)
[2025-06-12] MEDS: BETAMETHASONE 30 MG/5 ML MDV 12 MG INJ (11:19)
--- NOTE | 2025-06-12 11:30 | P.PCN_ITS ---
Date/Time/Diagnoses Date of procedure: 06/12/25 Time of procedure: 11:31 Pre-procedure diagnosis: FORAMINAL STENOSIS WITH LE SYMPTOMS Post-procedure diagnosis: same Procedure Notes Procedure: 1. FLUOROSCOPICALLY GUIDED CONTRAST CONTROLLED TRANSFORAMINAL EPIDURAL STEROID INJECTION - RIGHT L5/S1 TFESI Indications: Chente is referred by Dr. Mars for treatment of Foraminal Stenosis with Right LE Symptoms Physician: Cong Dimas Total Fluoroscopy time (seconds): 9 Total sedation minutes: 10 Complications: none Procedure in detail & Post-procedure care: FINDINGS Foraminal Nerve Root Compression secondary to disc disease and facet hypertrophy DESCRIPTION OF PROCEDURE Following review of allergy and review of potential side effects and complications, including, but not necessarily limited to, infection, allergic re action, local tissue breakdown, stroke, temporary or permanent nerve injury, paralysis, and possible , the patient indicated that the patient understood and agreed to proceed. An informed consent document was signed by the patient, witnessed by a nurse, and placed in the patient's chart. Additionally, other treatment options including medications, modalities, and physical therapy were reviewed with the patient. After review of previous anaesthesic history and IV conscious sedation the patient was deemed safe to proceed with today?s procedure with IV conscious sedation as ASA class II designation. Safety time-out was performed to confirm patient ID, procedure to be performed and site of procedure. IV sedation was accomplished with a combination of 2mg of Versed was administered by the RN after DO order, titrated to patient comfort during the course of the procedure while the patient remained responsive to all verbal commands In the prone position following sterile prep and drape of the lumbar region, the right L5/S1 posterior neuroforamen was identified fluoroscopically. The skin was anesthetized via a 25-gauge 1.5-inch needle with 1% lidocaine solution. At this point, a 25-gauge 3.5-inch spinal needle was atraumatically introduced and advanced under fluoroscopic guidance through the posterior right L5/S1 neuroforamen to approximately the anterior aspect of the canal. Depth was confirmed on lateral view. Following negative aspiration, injection of approximately 1.5cc of Isovue 200 under live fluoroscopy in the AP view confirmed excellent flow along the nerve root, into the epidural space without vascular or intrathecal uptake observed Radiological data, including multiple fluoroscopic views of the lumbosacral spine, reveal a spinal needle at the right L5/S1 posterior neuroforamen. Subsequent views show flow of contrast material flowing superiorly and inferiorly along the nerve root confirming epidural flow. Subsequently, a test dose of 1.5cc of 0.25% marcaine solution was administered and patient was observed for two minutes for signs or symptoms of complications, including abdominal pain, shortness of breath, bilateral upper or lower extre mity weakness, nausea and vomiting, prior to steroid injection. At this point, a total of 3cc or 10mg of dexamethasone and 12mg of betamethasone was injected without incident. The procedure tolerated the procedure well without signs or symptoms of complications prior to transfer to the recovery area continued monitoring without incident. The patient was then transferred to the recovery area where they were observed for an appropriate time after the injection. The patient reported a VAS score of 7 prior to the procedure and a post- procedure VAS of 0. POST OP INSTRUCTIONS The patient was provided a Pain Log to continue to record their response to the target-specific procedure prior to follow-up visit with their referring physician. Additionally, specific post-injection care instructions and a contact number to our office were provided if concerns arise regarding possible complications associated with the procedure are suspected.
== END 2025-06-12 11:51 | disposition home or self-care (01) ==
LOC: RAD 09:41
PROVIDERS: PCP Family Medicine; Referring Provider Physical Medicine & Rehabilitation; Visit Provider Physical Medicine & Rehabilitation
DX: M48.07 Spinal stenosis, lumbosacral region (principal); M51.17 Intervertebral disc disorders with radiculopathy, lumbosacral region; M47.27 Other spondylosis with radiculopathy, lumbosacral region
CPT/HCPCS: 64483; 99152; J0702; J1100; J2250